=== PATIENT | female | born 2000 | race Caucasian/White ===

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

== ENCOUNTER 2021-06-08 10:28 | Emergency (ER) | payer OTHER ==
[~2021-06-08] VITALS: Ht 162.6 cm; Wt 57.7 kg
[2021-06-08 11:00] LABS: BASO # 0.1 10^3/uL (0.0-0.2); BASO % 1.2 % (0.0-1.0); EOS # 0.1 10^3/uL (0.0-0.5); EOS % 2.1 % (0.0-3.0); HEMATOCRIT 37.5 % (36.0-47.0); HEMOGLOBIN 12.2 g/dl (12.0-15.5); LYMPH # 1.3 10^3/uL (1.5-5.0); LYMPH % 31.3 % (24.0-44.0); MEAN CORPUSCULAR HGB CONC 32.5 g/dl (32.0-36.5); MEAN CORPUSCULAR VOLUME 95.2 fl (80.0-96.0); MONO # 0.4 10^3/uL (0.0-0.8); MONO % 9.5 % (2.0-8.0); NEUTROPHILS # 2.3 10^3/uL (1.5-8.5); NEUTROPHILS % 55.9 % (36.0-66.0); PLATELET COUNT, AUTOMATED 246 10^3/uL (150-450); RED BLOOD COUNT 3.94 10^6/uL (4.00-5.40); WHITE BLOOD COUNT 4.2 10^3/uL (4.0-10.0)
[2021-06-08 11:32] LABS: HCG, SERUM QUALITATIVE NEGATIVE (NEGATIVE)
[2021-06-08 12:05] LABS: BLOOD UREA NITROGEN 9 MG/DL (7-18); CALCIUM LEVEL 8.9 MG/DL (8.5-10.1); CARBON DIOXIDE LEVEL 28 MEQ/L (21-32); CHLORIDE LEVEL 107 MEQ/L (98-107); CREATININE FOR GFR 0.74 MG/DL (0.55-1.30); GLUCOSE, FASTING 91 MG/DL (70-100); POTASSIUM SERUM 4.2 MEQ/L (3.5-5.1); SODIUM LEVEL 139 MEQ/L (136-145)
[2021-06-08 12:30] VITALS: BP 103/66
--- NOTE | 2021-06-08 20:03 | ECGEPIP ---
[facility] - ED Test Date: 2021-06-08 Pat Name: BROOKE CHAUDHARY Department: Room: - Gender: Female Identification Clerk: OMAR : 2000 Requested By: Carmen Smith Order Number: [id number] Reading MD: Carmen Smith Measurements Intervals Alexander Rate: 57 P: 28 OH: 124 QRS: 72 QRSD: 92 T: 55 QT: 418 QTc: 406 Interpretive Statements Sinus bradycardia with marked sinus arrhythmia No prior Electronically Signed on 06-08-2021 20:03:19 EDT by Carmen Smith
== END 2021-06-08 12:54 | disposition home or self-care (01) ==
LOC: M ED 10:28 → EDBD 10:28 → M ED 12:54
DX: R55 Syncope and collapse (principal)

== ENCOUNTER → 2021-10-14 | Outpatient (CLI) | payer OTHER ==
[2021-10-14 11:34] LABS: HEMATOCRIT 39.2 % (36.0-47.0); HEMOGLOBIN 12.9 g/dl (12.0-15.5); MEAN CORPUSCULAR HEMOGLOBIN 30.9 pg (27.0-33.0); MEAN CORPUSCULAR HGB CONC 32.9 g/dl (32.0-36.5); PLATELET COUNT, AUTOMATED 235 10^3/uL (150-450); RED BLOOD COUNT 4.17 10^6/uL (4.00-5.40); WHITE BLOOD COUNT 5.3 10^3/uL (4.0-10.0)
[2021-10-14 12:28] LABS: ALBUMIN 4.3 GM/DL (3.2-5.2); ALT/SGPT 28 U/L (12-78); BLOOD UREA NITROGEN 14 MG/DL (7-18); CALCIUM LEVEL 9.7 MG/DL (8.5-10.1); CARBON DIOXIDE LEVEL 31 MEQ/L (21-32); CHLORIDE LEVEL 107 MEQ/L (98-107); CREATININE FOR GFR 0.71 MG/DL (0.55-1.30); GLUCOSE, FASTING 84 MG/DL (70-100); POTASSIUM SERUM 4.2 MEQ/L (3.5-5.1); SODIUM LEVEL 141 MEQ/L (136-145); TOTAL PROTEIN 7.7 GM/DL (6.4-8.2)
== END ==
LOC: M LAB 10:56
PROVIDERS: ATTEND Nurse Practitioner Family
DX: R55 Syncope and collapse (principal)

== ENCOUNTER → 2021-10-22 | Outpatient (CLI) | payer OTHER | LOC: M PLAIMG 07:38 | PROVIDERS: ATTEND Nurse Practitioner Family | DX: R55 Syncope and collapse (principal) ==

== ENCOUNTER → 2022-08-06 | Outpatient (REF) | payer OTHER | LOC: M LAB REF 15:16 | PROVIDERS: ATTEND Nurse Practitioner Family | DX: R19.7 Diarrhea, unspecified (principal) ==

== ENCOUNTER 2023-05-22 09:15 | Day surgery (SDC) | payer OTHER ==
[~2023-05-22] VITALS: Ht 165.1 cm; Wt 64.9 kg
[~2023-05-22 09:15] MED LIST changes: +NS 1,000 ML IV ONE; +mirena IUD
[2023-05-22 10:31] VITALS: TEMP 96.8
[2023-05-22 10:56] VITALS: BP 99/57; O2SAT 100
== END 2023-05-22 10:59 | disposition home or self-care (01) ==
LOC: M OPP 09:15
PROVIDERS: ATTEND Internal Medicine Gastroenterology
DX: K58.1 Irritable bowel syndrome with constipation (principal); K63.3 Ulcer of intestine; Z79.1 Long term (current) use of non-steroidal anti-inflammatories (NSAID); F17.290 Nicotine dependence, other tobacco product, uncomplicated

== ENCOUNTER 2024-03-10 12:32 | Day surgery (SDC) | payer OTHER ==
[~2024-03-10] VITALS: Ht 165.1 cm; Wt 65.6 kg
[~2024-03-10 12:32] MED LIST changes: -NS 1,000 ML IV ONE
[2024-03-10] MEDS: NS 1,000 ML IV ONE (13:19)
[2024-03-10] MEDS ORDERED: propofoL 200 MG/20 ML VIAL As Ordered ONE (14:23)
[2024-03-10 14:35] VITALS: TEMP 97.1
[2024-03-10 14:55] VITALS: BP 109/68; O2SAT 100
== END 2024-03-10 15:00 | disposition home or self-care (01) ==
LOC: M OPP 12:32
PROVIDERS: ATTEND Internal Medicine Gastroenterology
DX: K64.8 Other hemorrhoids (principal); K92.1 Melena; Z87.891 Personal history of nicotine dependence; Z88.1 Allergy status to other antibiotic agents

== ENCOUNTER → 2024-03-11 | Outpatient (REF) | payer OTHER ==
[2024-03-11 14:30] LABS: GC DNA AMPLIFICATION NEGATIVE (NEGATIVE)
== END ==
LOC: M LAB REF 12:19
PROVIDERS: ATTEND Registered Nurse
DX: Z00.00 Encounter for general adult medical examination without abnormal findings (principal); Z11.3 Encounter for screening for infections with a predominantly sexual mode of transmission

== ENCOUNTER → 2025-04-13 | Outpatient (REF) | payer OTHER ==
[~2025-04-13] MED LIST changes: -IBUP-1022 PO; +IBUP600T42 PO
[2025-04-13 18:56] LABS: GC DNA AMPLIFICATION NEGATIVE (NEGATIVE)
== END ==
LOC: M LAB REF 16:52
PROVIDERS: ATTEND Registered Nurse
DX: Z00.00 Encounter for general adult medical examination without abnormal findings (principal); Z11.3 Encounter for screening for infections with a predominantly sexual mode of transmission